=== PATIENT | female | born 1975 | race Caucasian/White ===

== ENCOUNTER → 2019-06-26 15:07 | Outpatient (BNVA) | payer MEDICAID, SELFPAY | PROVIDERS: Family Provider Nurse Practitioner Family; PCP Nurse Practitioner Family; Visit Provider Nurse Practitioner Family | DX: R07.9 Chest pain, unspecified (principal) | CPT/HCPCS: 71046 ==

== ENCOUNTER → 2019-06-28 15:02 | Outpatient (BNVA) | payer MEDICAID, SELFPAY | PROVIDERS: Family Provider Nurse Practitioner Family; PCP Nurse Practitioner Family; Visit Provider Nurse Practitioner Family | DX: R07.89 Other chest pain (principal); K21.9 Gastro-esophageal reflux disease without esophagitis; R53.83 Other fatigue; E55.9 Vitamin D deficiency, unspecified; E78.5 Hyperlipidemia, unspecified; R07.2 Precordial pain; J06.9 Acute upper respiratory infection, unspecified | CPT/HCPCS: 84481 ==

== ENCOUNTER → 2019-06-29 15:02 | Outpatient (BNVA) | payer MEDICAID, SELFPAY | PROVIDERS: Family Provider Nurse Practitioner Family; PCP Nurse Practitioner Family; Visit Provider Nurse Practitioner Family | DX: R07.89 Other chest pain (principal); K21.9 Gastro-esophageal reflux disease without esophagitis; R53.83 Other fatigue; E55.9 Vitamin D deficiency, unspecified; E78.5 Hyperlipidemia, unspecified; R07.2 Precordial pain; J06.9 Acute upper respiratory infection, unspecified | CPT/HCPCS: 36415; 80053; 80061; 82306; 84439; 84443; 85025 ==

== ENCOUNTER 2019-07-06 08:56 | Outpatient (CLI) | payer MEDICAID, SELFPAY ==
--- NOTE | 2019-07-06 09:30 | CT_ITS ---
WS: [id number] CT CHEST WITH INTRAVENOUS CONTRAST HISTORY: thoracic chest pain and pressure TECHNIQUE: Contiguous 5 mm axial imaging performed on the thorax. Coronal and sagittal reformats are submitted. All CT scans at [facility] use at least one of these dose optimization techniq ues: automated exposure control; mA and/or kV adjustment per patient size (includes targeted exams wh ere dose is matched to clinical indication); or iterative reconstruction. CONTRAST: Omnipaque 300; 95 mL IV. DLP: 890.91 mGy.cm COMPARISON: 08/25/2018 Lungs and central airway: Normal. Pleura: Normal. No pleural effusion. Heart and pericardium: Normal size heart. No pericardial effusion. Mediastinum and dana: No mediastinum or hilar adenopathy. Vessels: Normal size aortic and pulmonary artery. No coronary artery calcifications. Chest wall and lower neck: Small axillary lymph nodes. No mass is noted along the midline chest near the sternum in the area of pain. There is mild sternoclavicular joint arthritis. Upper abdomen: Prior cholecystectomy. No hiatal hernia. Visualized portion of the upper abdomen is ne gative. Osseous structures: No osteoblastic or osteolytic bone disease. CT/CT chest w con* [id number] IMPRESSION: 1. No soft tissue mass along the anterior chest wall. 2. Mild SC joint arthritis. 3. No pneumonia. 4. Prior cholecystectomy.
[2019-07-06] MEDS: iohexol 300 mg/mL 100 mL Btl IV (09:44)
== END 2019-07-06 08:57 | disposition home or self-care (01) ==
LOC: RAD 08:57
PROVIDERS: Family Provider Nurse Practitioner Family; PCP Nurse Practitioner Family; Visit Provider Nurse Practitioner Family
DX: R07.89 Other chest pain (principal); M13.88 Other specified arthritis, other site; Z90.49 Acquired absence of other specified parts of digestive tract
CPT/HCPCS: 71260

== ENCOUNTER 2019-07-22 13:05 | Outpatient (CLI) | payer MEDICAID, SELFPAY ==
--- NOTE | 2019-07-22 13:30 | US_ITS ---
WS: [id number] THYROID ULTRASOUND HISTORY: r/o thyroid nodule COMPARISON: None available. Right lobe: 4.5 cm x 1.2 cm x 1.6 cm. Volume: 4.2 cm3. Normal size and echotexture. No significant are dominant nodules are present. Left lobe: 4.5 cm x 1.7 cm x 1.4 cm. Volume: 5.8 cm3. Normal size and echotexture. No significant or dominant nodules are present. Isthmus: 0.3 cm. US/US thyroid [id number] IMPRESSION: Normal thyroid ultrasound.
== END 2019-07-22 13:06 | disposition home or self-care (01) ==
LOC: US 13:06
PROVIDERS: Family Provider Nurse Practitioner Family; PCP Nurse Practitioner Family; Visit Provider Nurse Practitioner Family
DX: M50.90 Cervical disc disorder, unspecified, unspecified cervical region (principal); M25.511 Pain in right shoulder; M25.512 Pain in left shoulder; Z79.891 Long term (current) use of opiate analgesic
CPT/HCPCS: 76536; 99214

== ENCOUNTER → 2019-10-07 16:23 | Outpatient (BNVA) | payer MEDICAID, SELFPAY | PROVIDERS: Family Provider Nurse Practitioner Family; PCP Nurse Practitioner Family; Visit Provider Nurse Practitioner Family | DX: G47.00 Insomnia, unspecified (principal); R07.9 Chest pain, unspecified; N39.0 Urinary tract infection, site not specified; G47.10 Hypersomnia, unspecified | CPT/HCPCS: 81001 ==

== ENCOUNTER → 2019-11-26 14:23 | Outpatient (BNVA) | payer MEDICAID, SELFPAY ==
[2019-11-06 09:41] VITALS: BP 146/84; BMI 33.1
== END ==
PROVIDERS: Family Provider Nurse Practitioner Family; PCP Nurse Practitioner Family; Visit Provider Anesthesiology
DX: M54.41 Lumbago with sciatica, right side (principal); M54.42 Lumbago with sciatica, left side; M54.9 Dorsalgia, unspecified; M50.90 Cervical disc disorder, unspecified, unspecified cervical region; M19.90 Unspecified osteoarthritis, unspecified site; Z79.891 Long term (current) use of opiate analgesic
CPT/HCPCS: 99214

== ENCOUNTER → 2020-02-05 13:34 | Outpatient (BNVA) | payer MEDICAID, SELFPAY ==
[2019-11-06 09:41] VITALS: BP 146/84; BMI 33.1
== END ==
PROVIDERS: Family Provider Nurse Practitioner Family; PCP Nurse Practitioner Family; Visit Provider Anesthesiology
DX: M54.42 Lumbago with sciatica, left side (principal); M54.41 Lumbago with sciatica, right side; M50.90 Cervical disc disorder, unspecified, unspecified cervical region; M54.9 Dorsalgia, unspecified; Z79.891 Long term (current) use of opiate analgesic
CPT/HCPCS: 99213; 99214

== ENCOUNTER → 2020-03-09 11:02 | Outpatient (BNVA) | payer MEDICAID, SELFPAY ==
[2019-11-06 09:41] VITALS: BP 146/84; BMI 33.1
== END ==
PROVIDERS: Family Provider Nurse Practitioner Family; PCP Nurse Practitioner Family; Visit Provider Nurse Practitioner Family
DX: Z11.59 Encounter for screening for other viral diseases (principal); Z20.828 Contact with and (suspected) exposure to other viral communicable diseases
CPT/HCPCS: 87635

== ENCOUNTER → 2020-04-01 13:33 | Outpatient (BNVA) | payer MEDICAID, SELFPAY ==
[2019-11-06 09:41] VITALS: BP 146/84; BMI 33.1
== END ==
PROVIDERS: Family Provider Nurse Practitioner Family; PCP Nurse Practitioner Family; Visit Provider Anesthesiology
DX: M54.41 Lumbago with sciatica, right side (principal); M54.42 Lumbago with sciatica, left side; M54.9 Dorsalgia, unspecified; M47.819 Spondylosis without myelopathy or radiculopathy, site unspecified; M50.90 Cervical disc disorder, unspecified, unspecified cervical region; Z79.891 Long term (current) use of opiate analgesic
CPT/HCPCS: 99213; 99214

== ENCOUNTER → 2020-05-27 13:34 | Outpatient (BNVA) | payer MEDICAID, SELFPAY ==
[2020-04-26 16:21] VITALS: BP 146/84; BMI 33.1
== END ==
PROVIDERS: Family Provider Nurse Practitioner Family; PCP Nurse Practitioner Family; Visit Provider Nurse Practitioner
DX: M54.9 Dorsalgia, unspecified (principal); M50.90 Cervical disc disorder, unspecified, unspecified cervical region; M19.90 Unspecified osteoarthritis, unspecified site; Z79.891 Long term (current) use of opiate analgesic
CPT/HCPCS: 99214

== ENCOUNTER → 2020-08-03 10:17 | Outpatient (BNVA) | payer MEDICAID, SELFPAY ==
[2020-04-26 16:21] VITALS: BP 146/84; BMI 33.1
== END ==
PROVIDERS: Family Provider Nurse Practitioner Family; PCP Nurse Practitioner Family; Visit Provider Anesthesiology
DX: M50.90 Cervical disc disorder, unspecified, unspecified cervical region (principal); M47.819 Spondylosis without myelopathy or radiculopathy, site unspecified; M54.9 Dorsalgia, unspecified; Z79.891 Long term (current) use of opiate analgesic
CPT/HCPCS: 99213

== ENCOUNTER → 2020-08-26 12:05 | Outpatient (BNVA) | payer MEDICAID, SELFPAY ==
[2020-04-26 16:21] VITALS: BP 146/84; BMI 33.1
== END ==
PROVIDERS: Family Provider Nurse Practitioner Family; PCP Nurse Practitioner Family; Visit Provider Nurse Practitioner Family
DX: J01.40 Acute pansinusitis, unspecified (principal); Z01.419 Encounter for gynecological examination (general) (routine) without abnormal findings; Z12.31 Encounter for screening mammogram for malignant neoplasm of breast; D64.9 Anemia, unspecified; R53.83 Other fatigue; E55.9 Vitamin D deficiency, unspecified; Z79.899 Other long term (current) drug therapy; Z13.6 Encounter for screening for cardiovascular disorders
CPT/HCPCS: 80053; 80061; 81003; 82306; 82607; 82746; 83036; 83550; 84439; 84443; 84481; 85025

== ENCOUNTER → 2020-09-30 13:25 | Outpatient (BNVA) | payer MEDICAID, SELFPAY ==
[2020-04-26 16:21] VITALS: BP 146/84; BMI 33.1
== END ==
PROVIDERS: Family Provider Nurse Practitioner Family; PCP Nurse Practitioner Family; Visit Provider Anesthesiology
DX: M50.90 Cervical disc disorder, unspecified, unspecified cervical region (principal); M54.9 Dorsalgia, unspecified; M47.819 Spondylosis without myelopathy or radiculopathy, site unspecified; M19.90 Unspecified osteoarthritis, unspecified site; Z79.891 Long term (current) use of opiate analgesic
CPT/HCPCS: 99213

== ENCOUNTER → 2020-12-02 13:25 | Outpatient (BNVA) | payer OTHER, MEDICAID, SELFPAY ==
[2020-04-26 16:21] VITALS: BP 146/84; BMI 33.1
== END ==
PROVIDERS: Family Provider Nurse Practitioner Family; PCP Nurse Practitioner Family; Visit Provider Anesthesiology
DX: M50.90 Cervical disc disorder, unspecified, unspecified cervical region (principal); M54.9 Dorsalgia, unspecified; M47.819 Spondylosis without myelopathy or radiculopathy, site unspecified; R07.9 Chest pain, unspecified; Z79.891 Long term (current) use of opiate analgesic; Z87.891 Personal history of nicotine dependence
CPT/HCPCS: 99213

== ENCOUNTER 2020-12-02 14:38 | Outpatient (CLI) | payer OTHER, MEDICAID, SELFPAY ==
[2020-04-26 16:21] VITALS: BP 146/84; BMI 33.1
--- NOTE | 2020-12-02 14:45 | XR_ITS ---
WS: [id number] INDICATION: Mid chest pain. Sternal pain. TECHNIQUE: 3 views of the sternum FINDINGS: Visualized sternum is normal in appearance. No visualized soft tissue lesion or fracture. N o other abnormalities. XR/XR sternum min 2V [id number] IMPRESSION: Normal visualized sternum. If persistent pain this can be further e valuated with chest CT.
== END 2020-12-02 14:39 | disposition home or self-care (01) ==
LOC: RADWPI 14:43
PROVIDERS: PCP Nurse Practitioner Family; Visit Provider Anesthesiology
DX: R07.89 Other chest pain (principal)
CPT/HCPCS: 71120

== ENCOUNTER → 2021-01-27 10:18 | Outpatient (BNVA) | payer OTHER, MEDICAID, SELFPAY ==
[2020-04-26 16:21] VITALS: BP 146/84; BMI 33.1
== END ==
PROVIDERS: PCP Nurse Practitioner Family; Visit Provider Nurse Practitioner
DX: M47.819 Spondylosis without myelopathy or radiculopathy, site unspecified (principal); M50.90 Cervical disc disorder, unspecified, unspecified cervical region; M19.90 Unspecified osteoarthritis, unspecified site; M79.7 Fibromyalgia; Z79.891 Long term (current) use of opiate analgesic
CPT/HCPCS: 99212; 99213

== ENCOUNTER → 2021-03-03 14:49 | Outpatient (BNVA) | payer OTHER, MEDICAID, SELFPAY ==
[2021-01-27 11:09] VITALS: BP 146/84; BMI 33.1
== END ==
PROVIDERS: PCP Nurse Practitioner Family; Visit Provider Nurse Practitioner Family
DX: M79.641 Pain in right hand (principal)
CPT/HCPCS: 73130

== ENCOUNTER → 2021-03-10 13:57 | Outpatient (BNVA) | payer OTHER, MEDICAID, SELFPAY ==
[2021-01-27 11:09] VITALS: BP 146/84; BMI 33.1
== END ==
PROVIDERS: PCP Nurse Practitioner Family; Visit Provider Nurse Practitioner
DX: M79.671 Pain in right foot (principal); M50.90 Cervical disc disorder, unspecified, unspecified cervical region; M47.819 Spondylosis without myelopathy or radiculopathy, site unspecified; Z79.891 Long term (current) use of opiate analgesic
CPT/HCPCS: 99213

== ENCOUNTER → 2021-06-13 14:52 | Outpatient (BNVA) | payer OTHER, MEDICAID, SELFPAY ==
[2021-01-27 11:09] VITALS: BP 146/84; BMI 33.1
== END ==
PROVIDERS: PCP Nurse Practitioner Family; Visit Provider Family Medicine
DX: J32.9 Chronic sinusitis, unspecified (principal); J06.9 Acute upper respiratory infection, unspecified
CPT/HCPCS: 87635

== ENCOUNTER → 2021-06-15 14:17 | Outpatient (BNVA) | payer OTHER, MEDICAID, SELFPAY ==
[2021-01-27 11:09] VITALS: BP 146/84; BMI 33.1
== END ==
PROVIDERS: PCP Nurse Practitioner Family; Visit Provider Family Medicine
DX: J32.9 Chronic sinusitis, unspecified (principal); J06.9 Acute upper respiratory infection, unspecified
CPT/HCPCS: 87400

== ENCOUNTER → 2023-01-28 14:27 | Outpatient (BNVA) | payer OTHER, MEDICAID, SELFPAY ==
[2021-01-27 11:09] VITALS: BP 146/84; BMI 33.1
== END ==
PROVIDERS: PCP Family Medicine; Visit Provider Nurse Practitioner
DX: R69 Illness, unspecified (principal)
CPT/HCPCS: 87426

== ENCOUNTER → 2023-09-02 15:04 | Outpatient (BNVA) | payer MEDICAID, SELFPAY ==
[2021-01-27 11:09] VITALS: BP 146/84; BMI 33.1
== END ==
PROVIDERS: PCP Family Medicine; Visit Provider Nurse Practitioner Women's Health
DX: Z12.4 Encounter for screening for malignant neoplasm of cervix (principal)
CPT/HCPCS: 87624

== ENCOUNTER 2023-10-03 15:31 | Outpatient (CLI) | payer OTHER, SELFPAY ==
[2021-01-27 11:09] VITALS: BP 146/84; BMI 33.1
--- NOTE | 2023-10-03 15:45 | MM_ITS ---
WS: [id number] SCREENING DIGITAL BREAST TOMOSYNTHESIS MAMMOGRAM WITH CAD HISTORY: Z12.31 - Encounter for screening mammogram for malignant ... COMPARISON: None available. Bilateral CC and MLO with tomosynthesis and synthetic mammography submitted. Computer aided detection analyzed. Breast composition: There are scattered areas of fibroglandular density. Mild architectural distortio n noted in the superior breast at 12:00 only on the RIGHT MLO projection. Otherwise breasts are negat roseanne. IMPRESSION: MM/[place] [id number] BI-RADS: 0-Incomplete: Need additional imaging evaluation FOLLOW UP: Need Additional Imaging RIGHT breast: Spot compression views (CC and MLO). True ML. Ultrasound to follo w if abnormality persists.
== END 2023-10-03 15:32 | disposition home or self-care (01) ==
LOC: MOBLMAM 15:35
PROVIDERS: PCP Nurse Practitioner Family; Visit Provider Nurse Practitioner Family
DX: Z12.31 Encounter for screening mammogram for malignant neoplasm of breast (principal); R92.321 Mammographic fibroglandular density, right breast
CPT/HCPCS: 77063; 77067

== ENCOUNTER 2024-06-08 15:50 | Emergency (ER) | payer OTHER, SELFPAY ==
[2024-06-08 12:59] VITALS: BP 146/84; BMI 33.1
[2024-06-08 16:21] VITALS: BP 129/79; PULSE 78; RESP 18; TEMP 36.7; O2SAT 99
--- NOTE | 2024-06-08 16:26 | ECG_ITS ---
Rundown App Test Date: 2024-06-08 Pat Name: Janet Mo Department: Room: Gender: Female [employer] Claims Adjuster: : 1975 Requested By: Suzanna Austin Order Number: [id number] Dmitri MD: Gio Nur M.D. Measurements Intervals [place] Rate: 69 P: 54 SC: 179 QRS: 5 QRSD: 84 T: 36 QT: 402 QTc: 432 Interpretive Statements SINUS RHYTHM LOW QRS VOLTAGE IN PRECORDIAL LEADS [QRS DEFLECTION < 1.0 mV IN CHEST LEADS] POSSIBLE ANTERIOR MYOCARDIAL INFARCTION , PROBABLY OLD [30 ms Q WAVE IN V3/V4, OR R < 0.2 mV IN V4] Compared to ECG 11/09/2015 20:05:58 Low QRS voltage now present Myocardial infarct finding now present Electronically Signed On 06-08-2024 16:49:14 VICE PRESIDENT OF NEWS by Gio Nur M.D. [email or web address]
--- NOTE | 2024-06-08 16:34 | XRR_ITS ---
PROCEDURE INFORMATION: Exam: XR Chest Exam date and time: 06/08/2024 4:47 PM Age: 49 years old Clinical indication: Pain; Chest pressure; Additional info: Cp TECHNIQUE: Imaging protocol: Radiologic exam of the chest. Views: 1 view. COMPARISON: CT chest w con* [id number] 07/06/2019 9:54 AM FINDINGS: Lungs: Unremarkable. No consolidation. Pleural spaces: Unremarkable. No pleural effusion. No pneumothorax. Heart/Mediastinum: Unremarkable. No cardiomegaly. Bones/joints: Unremarkable. XR/XR chest 1V portable [id number] IMPRESSION: No acute findings.
--- NOTE | 2024-06-08 16:43 | ED_ITS ---
HPI - Dizziness 2 General: Chief Complaint: Dizziness Stated Complaint: Dizzy Time Seen by Provider: 06/08/24 16:32 Source: patient Mode of arrival: ambulatory Limitations: no limitations History of Present Illness: HPI Narrative: 49-year-old female states she had an epi sode of chest pain at noon today states it was a pressure pain she also had some lightheadedness felt like she could not breathe and had a headache states she has had episodes like this in the past as well states all the symptoms have completely resolved currently she denies any fever denies any cough denies any vomiting diarrhea Associated symptoms: Reports chest pain; Denies chills, headache(s), nausea or vomiting Related Data Home Medications Medication Instructions Recorded Confirmed duloxetine 20 mg capsule,delayed mg PO 09/20/23 06/08/24 release hydrocodone 10 mg-acetaminophen tab PO 05/22/24 06/08/24 325 mg tablet Previous Rx's Medication Instructions Recorded metoprolol tartrate 25 mg tablet See Rx Instructions .Route 05/14/23 .COMPLEX #60 tabs albuterol sulfate 90 mcg/actuation See Rx Instructions .Route 09/20/23 aerosol inhaler (ProAir HFA) .COMPLEX #8.5 grams hydroxyzine HCl 25 mg tablet 25 mg PO TID PRN itching #30 tabs 11/06/23 ergocalciferol (vitamin D2) 1,250 See Rx Instructions .Route 11/25/23 mcg (50,000 unit) capsule .COMPLEX #4 caps losartan 50 mg tablet See Rx Instructions .Route 01/14/24 .COMPLEX #90 tabs Allergies Allergy/AdvReac Type Severity Reaction Status Date / Time topiramate [From Topamax] Allergy chest Verified 06/08/24 16:24 pain, throat pain venlafaxine [From Effexor] Allergy chest Verified 06/08/24 16:24 pain, throat pain amitriptyline AdvReac ADR-Itching Verified 06/08/24 16:24 Review of Systems 2 Const: Denies: fever(s), chills, body aches or change in appetite Eyes: Denies: eye discomfort ENMT: Denies: throat pain or dental pain Card: Reports: chest pain Resp: Denies: dyspnea GI: Denies: abdominal pain, nausea, vomiting or diarrhea Musc: Denies: neck pain or back pain Skin/Breast: Denies: rash Neuro: Denies: headache(s) PFSH ED 2 PFSH: Medical History (Updated 06/08/24 @ 17:39 by Suzanna Austin MD) Palpitations Intermittent chest pain Near syncope Acute bacterial sinusitis Nasal sore Lesion of skin of scalp Environmental and seasonal allergies Allergic dermatitis Abnormal mammogram Upper respiratory infection Premenopausal patient Irregular menses Right hand pain Wrist pain Carpal tunnel syndrome, bilateral Dental infection Right otitis media Vitamin D deficiency Fatigue Anemia Screening for hypertension Medication management Breast cancer screening by mammogram Bronchitis Sinusitis 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 Treviño Hx of knee surgery Right knee when in 4th grade Hx of cholecystectomy Hx of tonsillectomy Family History Father Hypertension Heart disease Mother Diabetes Hypertension Thyroid disease Sister Thyroid disease Denies family history of Colon cancer Ovarian cancer Prostate cancer Hyperlipidemia Breast cancer Uterine cancer Stroke Social History Smoking and tobacco/nicotine status: never used tobacco/nicotine Physical Exam 2 Const: COMMON NORMALS: no acute distress, patient oriented x3 and healthy appearing HENMT: COMMON NORMALS: normocephalic and atraumatic HEAD & SCALP: n ormocephalic and atraumatic Eye: COMMON NORMALS: conjunctivae normal CONJUNCTIVA: Yes conjunctivae normal Neck/C-Spine: COMMON NORMALS: full ROM and supple Chest: COMMONS NORMALS: normal inspection of the chest Resp: COMMON NORMALS: normal respiratory effort, No retractions, No use of accessory muscles and clear to auscultation bilaterally AUSCULTATION: clear to auscultation bilaterally Cardio: COMMON NORMALS: regular rate, regular rhythm and No murmurs present (Cardio) RATE: regular rate RHYTHM: regular rhythm Extremity: COMMON NORMALS: normal to inspection and full ROM Neuro: COMMON NORMALS: patient oriented x3, moves all extremities and no focal motor deficits Psych: COMMON NORMALS: mental status grossly normal, Normal thought process present and cooperative THOUGHT PROCESS: Normal thought process present Skin: COMMON NORMALS: no rashes or lesions noted and no wounds GENERAL SKIN EXAM: no rashes or lesions noted Course 2 Vital Signs: Vital signs: Vital Signs Temperature 98.0 F 06/08/24 16:21 Pulse Rate 63 06/08/24 17:11 Respiratory Rate 18 06/08/24 17:11 Blood Pressure 135/75 06/08/24 17:11 Pulse Oximetry 96 06/08/24 17:11 Oxygen Delivery Me thod Room Air 06/08/24 17:11 Clincial Decision Support The following clinical decision support tools were used to aid in care of the patient HEART Score -> History: Slightly Suspicous, EKG: Normal, Age: 45-64 yrs, Risk Factors: No Risk Factors Known, Troponin: Baseline Trop <16 ng/L. Resulting HEART Score: 1. MDM - Dizziness Medical Decision Making Patient presents for chest pains atypical in nature troponin here is negative pains been going on since earlier this morning do not feel we need to do a 2- hour troponin at this time EKG is normal as well patient's had no pain here has palpitation with the vents as well I informed her she needs a follow-up with her PCP likely get a event monitor also an outpatient stress test if she has any worsening symptoms she is to return she understands agrees to plan Medical Records I reviewed the patient's medical records. Lab Data I reviewed the patient's lab results. 06/08/24 16:44 06/08/24 16:44 Radiology Impressions Chest X-Ray 06/08/24 16:34 IMPRESSION: No acute findings. Laboratory Results WBC 8.44 10^3/uL (3.29-11.43) 06/08/24 16:44 RBC 4.33 10^6/uL (3.85-5.65) 06/08/24 16:44 Hgb 13.30 g/dL (11.27-16.99) 06/08/24 16:44 Hct 40.6 % (36-47) 06/08/24 16:44 MCV 93.8 fl (85-98) 06/08/24 16:44 MCH 30.7 pg (27-33) 06/08/24 16:44 MCHC 32.8 g/dL (30-55) 06/08/24 16:44 RDW 12.2 % (12.1-15.1) 06/08/24 16:44 Plt Count 317 10^3/cmm (157-399) 06/08/24 16:44 MPV 9.7 fL (7.4-10.4) 06/08/24 16:44 Neut % (Auto) 57.7 % 06/08/24 16:44 Lymph % (Auto) 35.5 % 06/08/24 16:44 [place] % (Auto) 4.9 % 06/08/24 16:44 Eos % (Auto) 1.2 % 06/08/24 16:44 Baso % (Auto) 0.5 % 06/08/24 16:44 Neut # (Auto) 4.87 10^3/uL (1.8-7.7) 06/08/24 16:44 Lymph # (Auto) 3.0 10^3/uL (0.8-4.8) 06/08/24 16:44 [place] # (Auto) 0.4 10^3/uL (0.2-0.9) 06/08/24 16:44 Eos # (Auto) 0.1 10^3/uL (0.0-0.8) 06/08/24 16:44 Baso # (Auto) 0.0 10^3/uL (0.0-0.1) 06/08/24 16:44 Nucleated RBC % (auto) 0 % 06/08/24 16:44 Nucleated RBCs # 0.0 /100WBC 06/08/24 16:44 Sodium 136 mmol/L (136-145) 06/08/24 16:44 Potassium 4.4 mmol/L (3.5-5.1) 06/08/24 16:44 Chloride 101 mmol/L (98-107) 06/08/24 16:44 Carbon Dioxide 25 mmol/L (22-29) 06/08/24 16:44 Anion Gap 14.4 (5-19) 06/08/24 16:44 BUN 9 mg/dL (6-20) 06/08/24 16:44 Creatinine 0.5 mg/dL (0.5-0.9) 06/08/24 16:44 GFR Calculation 130.6 mL/min (90-130) H 06/08/24 16:44 Glucose 114 mg/dL (65-115) 06/08/24 16:44 Calculated Osmolality 282 mOsm/kg (285-295) L 06/08/24 16:44 Calcium 9.8 mg/dL (8.5-10.5) 06/08/24 16:44 Total Bilirubin 0.2 mg/dL (0.15-1.2) 06/08/24 16:44 AST 19 U/L (0-32) 06/08/24 16:44 ALT 19 U/L (0-33) 06/08/24 16:44 Alkaline Phosphatase 52 U/L (35-105) 06/08/24 16:44 Troponin T Baseline 7 ng/L (0-10) 06/08/24 16:44 Total Protein 7.1 g/dL (6.6-8.7) 06/08/24 16:44 Albumin 4.6 g/dL (3.5-5.2) 06/08/24 16:44 Globulin 2.5 g/dL (1.3-4.6) 06/08/24 16:44 Lipase 28 U/L (13-60) 06/08/24 16:44 TSH 0.89 uIU/mL (0.27-4.20) 06/08/24 16:44 All radiology interpretation(s) finalized by discharge EKG Data EKG 1: I personally reviewed and interpreted this EKG as follows: EKG interpretation date: 06/08/24 EKG interpretation time: 16:26 Interpretation: nsr hr [address] or t wave abnormalities qrs 84 qtc 421 Discharge Plan Discharge Patient Disposition: Home Clinical Impression: Palpitations, Chest pain Condition: Stable Prescriptions: No Action duloxetine 20 mg capsule,delayed release(DR/EC) PO albuterol sulfate [ProAir HFA] 90 mcg/actuation HFA aerosol inhaler See Rx Instructions .ROUTE .COMPLEX Qty: 8.5 2RF Dose Instruction: USE ONE INHALATION EVERY 6 HOURS NEEDED FOR SHORTNESS OF BREATH OR FOR WHEEZING Rx Instructions: USE ONE INHALATION EVERY 6 HOURS NEEDED FOR SHORTNESS OF BREATH OR FOR WHEEZING dexamethasone sodium phosphate 10 mg/mL solution 10 mg IM ONCE Qty: 1 0RF hydroxyzine HCl 25 mg tablet 25 mg PO TID PRN (Reason: itching) Qty: 30 1RF hydrocodone-acetaminophen 10-325 mg tablet PO metoprolol tartrate 25 mg tablet See Rx Instructions .ROUTE .COMPLEX Qty: 60 5RF Dose Instruction: TAKE ONE-HALF TABLET BY MOUTH TWICE DAILY FOR HYPERTENSION Rx Instructions: TAKE ONE-HALF TABLET BY MOUTH TWICE DAILY FOR HYPERTENSION ergocalciferol (vitamin D2) 1,250 mcg (50,000 unit) capsule See Rx Instructions .ROUTE .COMPLEX Qty: 4 5RF Dose Instruction: TAKE ONE CAPSULE BY MOUTH WEEKLY Rx Instructions: TAKE ONE CAPSULE BY MOUTH WEEKLY losartan 50 mg tablet See Rx Instructions .ROUTE .COMPLEX Qty: 90 1RF Dose Instruction: TAKE 1 TABLET BY MOUTH EVERY DAY Rx Instructions: TAKE 1 TABLET BY MOUTH EVERY DAY Discharge Orders: Discharge ED (Routine); Ordered 06/08/24 Ordered By: Suzanna Austin Referrals: KOKI Kevin, SHIP SURVEYOR [Primary Care Provider] - Discharge Diet: Advance as tolerated Discharge Activity: Resume usual activity Patient Instructions: Chest Pain (ED) Coding Level of Care Code ED Railroad Design Consultant for Edil Stevenson
[2024-06-08 16:54] LABS: Basophils % 0.5 %; Eosinophils # 0.1 10^3/uL (0.0-0.8); Eosinophils % 1.2 %; Hematocrit 40.6 % (36-47); Lymphocytes % 35.5 %; Mean Corpuscular HGB Conc 32.8 g/dL (30-55); Mean Corpuscular Hemoglobin 30.7 pg (27-33); Mean Corpuscular Volume 93.8 fl (85-98); Mean Platelet Volume 9.7 fL (7.4-10.4); Monocytes # 0.4 10^3/uL (0.2-0.9); Monocytes % 4.9 %; Neutrophils # 4.87 10^3/uL (1.8-7.7); Neutrophils % 57.7 %; Nucleated Red Blood Cells % 0 %; Platelet Count 317 10^3/cmm (157-399); Red Blood Count 4.33 10^6/uL (3.85-5.65); Red Cell Distribution Width 12.2 % (12.1-15.1); White Blood Count 8.44 10^3/uL (3.29-11.43)
[2024-06-08 17:11] VITALS: BP 135/75; PULSE 63; RESP 18; O2SAT 96
[2024-06-08 17:14] LABS: Troponin(5th) Baseline 7 ng/L (0-10)
[2024-06-08 17:30] LABS: Alanine Aminotransferase 19 U/L (0-33); Albumin Level 4.6 g/dL (3.5-5.2); Alkaline Phosphatase 52 U/L (35-105); Anion Gap 14.4 (5-19); Aspartate Amino Transferase 19 U/L (0-32); Blood Urea Nitrogen 9 mg/dL (6-20); Calcium 9.8 mg/dL (8.5-10.5); Carbon Dioxide 25 mmol/L (22-29); Chloride 101 mmol/L (98-107); Globulin 2.5 g/dL (1.3-4.6); Glomerular Filtration Rate 130.6 mL/min (90-130); Glucose 114 mg/dL (65-115); Lipase 28 U/L (13-60); Osmolality Calculated 282 mOsm/kg (285-295); Potassium 4.4 mmol/L (3.5-5.1); Sodium 136 mmol/L (136-145); Thyroid Stimulating Hormone 0.89 uIU/mL (0.27-4.20); Total Bilirubin 0.2 mg/dL (0.15-1.2); Total Protein 7.1 g/dL (6.6-8.7)
[2024-06-08 17:58] VITALS: BP 141/92; PULSE 73; RESP 18; O2SAT 98
== END 2024-06-08 18:04 | disposition home or self-care (01) ==
PROVIDERS: Emergency Provider Emergency Medicine; PCP Nurse Practitioner Family
DX: R00.2 Palpitations (principal); R07.9 Chest pain, unspecified
CPT/HCPCS: 71045; 80053; 82962; 83690; 84443; 84484; 85025; 93005; 99285

== ENCOUNTER → 2024-06-22 10:31 | Outpatient (BNVA) | payer OTHER, SELFPAY ==
[2024-06-08 12:59] VITALS: BP 146/84; BMI 33.1
== END ==
PROVIDERS: PCP Nurse Practitioner Family; Visit Provider Nurse Practitioner Family
DX: R10.2 Pelvic and perineal pain (principal); N39.0 Urinary tract infection, site not specified; R31.9 Hematuria, unspecified
CPT/HCPCS: 81003; 87086

== ENCOUNTER → 2024-07-24 10:16 | Outpatient (BNVA) | payer OTHER, SELFPAY | PROVIDERS: PCP Nurse Practitioner Family; Visit Provider Internal Medicine Cardiovascular Disease | DX: R07.9 Chest pain, unspecified (principal) | CPT/HCPCS: 93005 ==

== ENCOUNTER 2024-08-24 07:57 | Outpatient (CLI) | payer OTHER, SELFPAY ==
--- NOTE | 2024-08-24 08:30 | USCV_ITS ---
Janet Mo Age: 49 Gender: F : 1975 Exam Date: 08/24/2024 08:21 Ordering Phys: Shoshana Atkins MD ([email or web address]) Technologist: Exam Location: [facility] [place] Indication: abnormal ekg BP: 130 / 90 HR: 62 Rhythm: Sinus Technical Quality: Adequate MEASUREMENTS (Male / Female) Normal Values 2D ECHO LV Diastolic Diameter PLAX 4.3 cm 4.2 - 5.9 / 3.9 - 5.3 cm IVS Diastolic Thickness 1.1 cm 0.6 - 1.0 / 0.6 - 0.9 cm IVS Systolic Thickness 1.5 cm LVPW Diastolic Thickness 1.0 cm 0.6 - 1.0 / 0.6 - 0.9 cm LVPW Systolic Thickness 1.5 cm LVOT Diameter 2.4 cm LV Ejection Fraction 2D Teich 66.2 % LV Ejection Fraction MOD 4C 52.3 % LV Ejection Fraction MOD 2C 61.6 % LV Ejection Fraction 2C AL 61.8 % LA Diameter 3.6 cm RA Systolic Volume 4C AL 29.9 ml RA Systolic Volume 4C MOD 29.2 ml Aorta at Sinotubular Diameter 2.6 cm M-MODE LA Ao Ratio MM 1.4 AV Cusp Separation MM 2.3 cm DOPPLER AV Peak Velocity 163.0 cm/s LVOT Peak Velocity 108.0 cm/s AV Area Cont Eq vti 3.7 cm squared AV Area Cont Eq pk 3.0 cm squared MV Peak Velocity 95.0 cm/s MV Area PHT 3.7 cm squared Mitral E to A Ratio 1.3 TV Peak Velocity 151.5 cm/s TR Peak Velocity 163.0 cm/s TR Peak Gradient 10.6 mmHg TV Peak E Velocity 87.0 cm/s PV Peak Velocity 107.0 cm/s FINDINGS Left Ventricle Normal left ventricular size, systolic function and wall thickness, with no regional wall motion abnormalities. Left ventricular ejection fraction is estimated at 60 % Normal diastolic function. Grade I/IV diastolic dysfunction (abnormal relaxation filling pattern), normal to mildly elevated filling pressures. Right Ventricle The right ventricle is normal in size and function. Right Atrium The right atrium is normal in size. Left Atrium The left atrium is normal in size. Mitral Valve Structurally normal mitral valve without significant stenosis or prolapse. There is no mitral regurgitation. Aortic Valve Structurally normal aortic valve without significant sclerosis or stenosis. There is no aortic regurgitation. Tricuspid Valve Structurally normal tricuspid valve without significant stenosis or regurgitation. Pulmonary artery systolic pressure is normal. Pulmonic Valve Structurally normal pulmonic valve without significant stenosis. There is no pulmonic regurgitation. Pericardium Normal pericardium without effusion. Aorta Normal ascending aorta dimension. IVC The inferior vena cava appears normal. CONCLUSIONS Normal left ventricular size, systolic function and wall thickness, with no regional wall motion abnormalities. Left ventricular ejection fraction is estimated at 60 % Normal diastolic function. Grade I/IV diastolic dysfunction (abnormal relaxation filling pattern), normal to mildly elevated filling There is no pericardial effusion. No significant valve abnormalities. Right atrial pressure is around 5 mm of mercury. Shoshana Atkins MD (Electronically Signed) Final Date: 26 August 2024 17:36 S
== END 2024-08-24 07:58 | disposition home or self-care (01) ==
LOC: RAD 07:59
PROVIDERS: PCP Nurse Practitioner Family; Visit Provider Internal Medicine Cardiovascular Disease
DX: R00.2 Palpitations (principal); R06.02 Shortness of breath
CPT/HCPCS: 93306

== ENCOUNTER 2024-09-14 11:02 | Outpatient (CLI) | payer OTHER, SELFPAY ==
--- NOTE | 2024-09-14 11:00 | CT_ITS ---
WS: [id number] CT CALCIUM SCORE REASON FOR VISIT: Family hx of CAD; Coronary artery disease risk assessment COMPARISON: None TECHNIQUE: Noncontrast coronary CT in combination with quantitative analysis performed on a separate workstation were used to determine CACS (Agatston score) TOTAL EXAM DOSE: 52.70 mGy.cm ECG GATING: Prospective SCAN RANGE: Pulmonary artery bifurcation to Inferior aspect of heart COMPLICATIONS: None FINDINGS: Technical Quality/Examination Quality: Good Limitaiton: None OVERALL SCORES Total calcium score: 5 Total volume score: 8 mm3 Percentile: 50th-75th percentile for females between the ages of 50 and 54 ARTERY SCORES Left main coronary artery: Na Left anterior descending artery: 5 Left circumflex artery: 0 Right coronary artery: Na OTHER FINDINGS: Mediastinum: Normal. Thoracic aorta: Normal. Lungs: Normal. Upper Abdomen: Cholecystectomy clips. Tiny esophageal hiatal hernia. Adrenal glands are normal. MINIMAL: 1-10 MILD: 11-100 MODERATE: 101-400 SEVERE:>400 CT/CT heart w calcium score [id number] IMPRESSION: Minimal coronary artery disease with total calcium score 5 GRADING OF CORONARY ARTERY DISEASE (BASED ON TOTAL CALCIUM SCORE) NO EVIDENCE OF CAD: 0 calcium score
== END 2024-09-14 11:03 | disposition home or self-care (01) ==
PROVIDERS: PCP Nurse Practitioner Family; Visit Provider Internal Medicine Cardiovascular Disease
DX: R07.9 Chest pain, unspecified (principal); R55 Syncope and collapse; Z82.49 Family history of ischemic heart disease and other diseases of the circulatory system; Z90.49 Acquired absence of other specified parts of digestive tract
CPT/HCPCS: 75571

== ENCOUNTER 2024-11-30 10:30 | Outpatient (CLI) | payer OTHER, SELFPAY ==
--- NOTE | 2024-11-30 10:33 | USCV_ITS ---
Janet Mo Age: 49 Gender: F : 1975 Exam Date: 11/30/2024 11:09 Ordering Phys: KOKI Kevin APRN Technologist: R Exam Location: [facility] [place] Indication: stenosis Risk Factors: Previous Vascular Surgery: Right Brachial BP: / Left Brachial BP: / Right Left Velocity (cm/s) Spectral Plaque Velocity (cm/s) Spectral Plaque Syst/Diast Broadening Syst/Diast Broadening 92.80/ 28.00 Prox CCA 89.00 / 32.10 77.20/ 26.70 Mid CCA 106.50/ 43.30 70.10/ 29.80 Distal CCA 82.50 / 28.10 59.00/ 22.60 Prox ICA 57.80 / 17.40 56.40/ 24.90 Mid ICA 69.80 / 32.80 56.40/ 30.60 Distal ICA 48.20 / 21.50 84.20 ECA 103.60 0.80 ICA/CCA 0.70 Antegrade Vertebral Antegrade 39.60/ 15.00 cm/s 39.80/ 14.80 cm/s Tri Subclavian Tri 92.30 101.9 0 FINDINGS Comparison: none available. No significant elevation of systolic or diastolic velocities. Waveforms are normal. No significant amount of calcified plaque or intimal thickening identified. CONCLUSIONS Normal carotid doppler ultrasound. Dr. Lili Olivera DO (Electronically Signed) Final Date: 30 November 2024 12:26 S
== END 2024-11-30 10:31 | disposition home or self-care (01) ==
LOC: RAD 10:31
PROVIDERS: PCP Nurse Practitioner Family; Visit Provider Nurse Practitioner Family
DX: R55 Syncope and collapse (principal)
CPT/HCPCS: 93880

== ENCOUNTER 2024-12-07 10:11 | Outpatient (CLI) | payer OTHER, SELFPAY ==
--- NOTE | 2024-12-07 10:17 | MR_ITS ---
WS: [id number] MRI HEAD WITH CONTRAST TECHNIQUE: Sagittal T1, T2 axial, T2 axial FLAIR, axial susceptibility weighted imaging, axial diffusion weighted images, and coronal T2 images were obtained. Pre and post-T1 axial and post T1 coronal images. ADC and FSPGR images. CLINICAL INFORMATION: SYNCOPE COLLAPSE COMPARISON: MRI 2019 FINDINGS: No evidence of restricted diffusion to suggest acute ischemia. Minimal frontal white matter changes similar to previous. No hemosiderin. Normal posterior fossa. Normal vascular flow voids at the skull base. No extra-axial fluid collections. Paranasal sinuses and mastoid air cells are well aerated. Normal optic chiasm and pituitary infundibulum. No abnormal gadolinium enhancement. Incidental benign venous angioma LEFT temporoparietal junction unchanged since 2018. No other suspicious findings. MR/MR head wo/w con [id number] IMPRESSION: 1. No evidence of restricted diffusion to suggest acute ischemia. 2. Mild frontal white matter change similar to previous nonspecific in a patie nt this age but can be seen with hypertension, diabetes, and migraine headaches . No significant parenchymal volume loss. 3. No hemosiderin on the susceptibility weighted images. 4. Benign venous angioma LEFT temporoparietal junction. 5. No other suspicious findings.
[2024-12-07] MEDS: gadobenate dimeglumine 20 mL vial 19 ML IV (10:57)
== END 2024-12-07 10:12 | disposition home or self-care (01) ==
LOC: RAD 10:13
PROVIDERS: PCP Nurse Practitioner Family; Visit Provider Nurse Practitioner Family
DX: R55 Syncope and collapse (principal); R93.0 Abnormal findings on diagnostic imaging of skull and head, not elsewhere classified
CPT/HCPCS: 70553

== ENCOUNTER → 2024-12-10 09:19 | Outpatient (BNVA) | payer OTHER, SELFPAY | PROVIDERS: PCP Nurse Practitioner Family; Visit Provider Nurse Practitioner Family | DX: I10 Essential (primary) hypertension (principal); R00.2 Palpitations; M79.89 Other specified soft tissue disorders; E55.9 Vitamin D deficiency, unspecified; N95.9 Unspecified menopausal and perimenopausal disorder; D64.9 Anemia, unspecified; M19.90 Unspecified osteoarthritis, unspecified site | CPT/HCPCS: 80053; 80061; 81003; 82306; 82607; 82728; 83036; 83550; 83921; 84443; 84550; 85025 ==

== ENCOUNTER 2025-04-06 08:18 | Outpatient (RCR) | payer OTHER, SELFPAY | END 2025-04-09 23:59 | disposition home or self-care (01) | LOC: WPT 08:18 | PROVIDERS: Visit Provider General Practice | DX: M47.814 Spondylosis without myelopathy or radiculopathy, thoracic region (principal); M47.816 Spondylosis without myelopathy or radiculopathy, lumbar region | CPT/HCPCS: 97161 ==

== ENCOUNTER 2025-04-19 08:42 | Outpatient (RCR) | payer OTHER, SELFPAY | END 2025-05-09 23:59 | disposition home or self-care (01) | LOC: WPT 08:42 | PROVIDERS: Visit Provider General Practice | DX: M47.814 Spondylosis without myelopathy or radiculopathy, thoracic region (principal); M47.816 Spondylosis without myelopathy or radiculopathy, lumbar region | CPT/HCPCS: 97110; 97112; 97530 ==